=== PATIENT | male | born 2000 | race Caucasian/White ===

== ENCOUNTER 2021-03-20 10:50 | Emergency (ER) | payer OTHER, SELFPAY ==
[2021-03-20 11:56] VITALS: BP 158/84; PULSE 100; RESP 20; TEMP 36.7; O2SAT 97; BMI 44.0
[2021-03-20 12:13] VITALS: BP 158/84; PULSE 100; RESP 19; TEMP 36.6
[2021-03-20 12:13] LABS: UTC Strep Screen (Rapid) Negative (Negative)
--- NOTE | 2021-03-20 12:17 | HMH.EDUTC ---
[facility] [place] Disposition Clinical Impression: Sinusitis Qualifiers: Sinusitis location: unspecified location Chronicity: acute Recurrence: non-recurrent Qualified Code(s): J01.90 - Acute sinusitis, unspecified Acute bronchitis Qualifiers: Bronchitis organism: unspecified organism Qualified Code(s): J20.9 - Acute bronchitis, unspecified Disposition: Home, Self-Care Condition on Discharge: Good Instructions: Sinusitis, DI for Sinusitis Additional Instructions: Drink plenty of fluids. Take tylenol or ibuprofen for pain or fever. Take the medications as directed. Follow up with your regular doctor. GO TO THE ER FOR ANY WORSENING SYMPTOMS Prescriptions: Albuterol Sulfate [Albuterol Sulfate Hfa] 2 puffs IH Q6HP PRN 30 Days #1 [email or web address] PRN Reason: Shortness Of Breath Transmission Status: Received by [facility] Brompheniramine/Pseudoephed/Dm [Bromfed Dm Cough Syrup] 5 ml PO Q6HP PRN #240 syrup PRN Reason: Cough Transmission Status: Received by [facility] Azithromycin [Z-Matteo 250mg Tab*] 250 mg PO UD DOSE PK #6 tab Transmission Status: Received by [facility] Referrals: Provider,Referral, [Primary Care Provider] - Time of Disposition: 12:24 Medical Decision Making - Medical Records Medical records reviewed: No: I reviewed the patient's medical records. - Sonny Inquiry Pt receiving controlled substance: No Vital Signs: 03/20/21 11:56 03/20/21 12:13 Temperature 98.1 F 98 F Temperature Source Oral Pulse Rate 100 H Pulse Rate [Right] 100 H Respiratory Rate 20 19 Blood Pressure 158/84 H Blood Pressure [Right Arm] 158/84 H Blood Pressure Mean [Right Arm] 108 02 Sat by Pulse Oximetry 97 - Lab Data Lab results reviewed: Yes: I reviewed the patient's lab results. Lab Results 03/20/21 11:59: Strep Scn Rapid Clinic Negative Orders (Tests/Meds): ORDERS Category Date Time Status Strep Screen Confirmation Stat Micro 03/20/21 11:59 Received [facility] [place] HPI - General Stated complaint: congestion Time Seen by Provider: 03/20/21 12:19 Mode of Arrival: Ambulatory Source of Information: Patient Limitations: No Limitations Description of Symptoms (Recalled from Triage Doc. by RN): pt c/o allergies such as, itchy eyes, nasal congestion, chest congestion and cough. pt has been working outside quite a bit this last week. pts cough is nonproductive pt is wheezing. HEENT Symptoms (Recalled from RN notes): Yes (watery/itchy eyes and nasal congestion) Resp Symptoms (Recalled from RN notes): Yes (nonproductive cough accompanied with wheezing.) Skin Symptoms (Recalled from RN notes): No MS Symptoms (Recalled from RN notes): No Functional Status (Recalled from RN notes): na - History of Present Illness Provider Complaint: He states that he has had sinus and chest congestion for the past 5 days. He thought he was having allergy symtoms, but so far allergy medication has not helped. - Related Data Previous Rx's Medication Instructions Recorded Albuterol Sulfate [Albuterol 2 puffs IH Q6HP PRN 30 Days #1 03/20/21 Sulfate Hfa] hfa.aer.ad Azithromycin [Z-Matteo 250mg Tab*] 250 mg PO UD DOSE PK #6 tab 03/20/21 Brompheniramine/Pseudoephed/Dm 5 ml PO Q6HP PRN #240 syrup 03/20/21 [Bromfed Dm Cough Syrup] Allergies Allergy/AdvReac Type Severity Reaction Status Date / Time No Known Allergies Allergy Verified 03/20/21 11:59 - Worker's Comp Is this a Worker's Comp case?: No [facility] History - Hepatitis A Screen Drug use history?: No High risk sexual behaviors?: No History of sexually transmitted infection?: No Currently employed?: No Childcare worker?: No Do you have indoor plumbing?: Yes Do you have electricity?: Yes Attestation statement:: This patient has been screened for Hepatitis A risk factors. I have reviewed the patient's past medical history: Yes ROS Obtained: Yes All systems reviewed & no additional complaints - Constitutional Constitutional:
== END 2021-03-20 12:40 | disposition home or self-care (01) ==
PROVIDERS: Emergency Provider Nurse Practitioner Family; PCP Family Medicine
DX: J01.90 Acute sinusitis, unspecified (principal); J20.9 Acute bronchitis, unspecified
CPT/HCPCS: 87880; 99202; G0463